=== PATIENT | male | born 1970 | race Caucasian/White ===

== ENCOUNTER 2023-09-26 17:05 | Outpatient (REF) | payer BC, SELFPAY | END 2023-09-26 17:06 | disposition home or self-care (01) | LOC: LBN 17:05 | PROVIDERS: Visit Provider Nurse Practitioner Family | DX: L25.5 Unspecified contact dermatitis due to plants, except food (principal); L03.115 Cellulitis of right lower limb; L03.116 Cellulitis of left lower limb | CPT/HCPCS: 87077; 87070; 87186; 87205 ==